=== PATIENT | female | born 1935 | race Caucasian/White ===

== ENCOUNTER → 2017-08-15 | Day surgery (SDC) | payer OTHER, MEDICARE ==
[~2017-08-15] VITALS: Ht 160 cm; Wt 68.9 kg
[~2017-08-15] MED LIST: AMLODIPINE BES2.5 M1 PO; ASPIRIN EC81 M1 PO; BENICAR40 M1 PO; BUSPIRONE HCL5 M1 PO; HYDROCHLOROTH12.5 M3 PO; LOPERAMIDE2 M1 PO; MECLIZINE HCL12.5 M1 PO; MOBIC7.5 MG PO; PRESERVISION A1 EAC1 PO; SYSTANE 0.3-0.415 ML OU
--- NOTE | 2017-08-15 09:56 | Operative Report ---
Operative/Inv Procedure Report Surgery Date: 08/15/17 Name of Procedure: Right carpal tunnel release Pre-Operative Diagnosis: Carpal tunnel syndrome Post-Operative Diagnosis: Same Estimated Blood Loss: none Surgeon/Salvationist: Trevor Rucker MD Anesthesia: moderate sedation IV Fluids: See anesthesia record Specimens: None Tourniquet: 10 minutes Complications: None Condition: Stable Operative Indication: Patient is an 81-year-old female with carpal tunnel syndrome. He is indicated for surgical release of the median nerve and decompression. Operative/Procedure Note Note: Once informed consent was obtained and the correct limb was identified patient brought In place and table supine position. After initiation of sedation the patient right arm had a tourniquet placed was prepped and draped in sterile fashion. Local anesthesia was infiltrated around the planned incision site. The anesthesia was a mixture of 1% lidocaine without epinephrine and 0.5% Marcaine without epinephrine. Incision was made in line with the radial border of the fourth ray. Sharp dissection was carried down to the skin and subcutaneous tissue and fat. The deep palmar fascia was incised. A [place] elevator was placed underneath the transverse carpal ligament and the transverse carpal ligament was sharply incised with a #15 blade. This was carried out distally and proximal for a full release. Care was taken to avoid any tendons or nerves. The wound was irrigated and then closed with 3-0 nylon interrupted sutures. Sterile dressing applied and the patient was awakened and taken recovery in stable condition.
== END ==
LOC: STS 02:01
DX: G56.01 Carpal tunnel syndrome, right upper limb (principal); I10 Essential (primary) hypertension; M16.10 Unilateral primary osteoarthritis, unspecified hip
CPT/HCPCS: J0690; J2250